=== PATIENT | female | born 1955 | race Hispanic/Latino ===

== ENCOUNTER → 2018-05-23 | Day surgery (SDC) | payer OTHER ==
[~2018-05-23] MED LIST: LIDOCAINE HCL 2% LOCAL INJ 5 ML SDV VIAL INJ ONE; LINZESS PO; MIDAZOLAM HCL 2 MG/2 ML VIAL ONE; PROPOFOL IV EMULSION 10 MG/ML 50 ML VIAL ONE
== END | disposition home or self-care (01) ==
LOC: OR 05:35
PROVIDERS: ATTEND Internal Medicine Gastroenterology
DX: Z12.11 Encounter for screening for malignant neoplasm of colon (principal); D12.2 Benign neoplasm of ascending colon; D12.3 Benign neoplasm of transverse colon; D12.4 Benign neoplasm of descending colon; K63.89 Other specified diseases of intestine; K64.8 Other hemorrhoids; K59.04 Chronic idiopathic constipation
CPT/HCPCS: 45384; 45385; 93005; J2001; J2250; 45378